=== PATIENT | male | born 1950 | race Hispanic/Latino ===

== ENCOUNTER 2022-11-05 15:51 | Emergency (ER) | payer BC ==
[2022-11-05] MEDS ORDERED: Bacitracin 1 PK ONE (16:12)
[2022-11-05] MEDS ORDERED: Cephalexin 250 MG CAP ONE (16:12)
== END 2022-11-05 16:22 | disposition home or self-care (01) ==
LOC: BURERS 15:51
DX: L03.116 Cellulitis of left lower limb (principal); E11.9 Type 2 diabetes mellitus without complications
CPT/HCPCS: 99283

== ENCOUNTER 2023-01-10 18:02 | Outpatient (CLI) | payer BC | END 2023-01-10 18:03 | disposition home or self-care (01) | LOC: BURRAD 18:02 | PROVIDERS: ATTEND Nurse Practitioner Family | DX: E11.9 Type 2 diabetes mellitus without complications (principal); L03.90 Cellulitis, unspecified ==